=== PATIENT | male | born 1980 | race African-American/Black ===

== ENCOUNTER 2016-11-15 10:56 | Emergency (ER) | payer OTHER ==
[~2016-11-15] VITALS: Ht 182.9 cm; Wt 80.0 kg
[2016-11-15 11:01] VITALS: Ht 182.9 cm; Wt 80.0 kg
--- NOTE | 2016-11-15 12:43 | RADRPT ---
PROCEDURE: XR Knee. CLINICAL INDICATION: Bilateral knee pain TECHNIQUE: Three views of the right knee and 3 views of the left knee knee are available for syeda liao. COMPARISON: None available FINDINGS: Right knee: There is no evidence of acute fracture. There is partial visualization of an intramedu llary ozzy with distal cannulated screws at the femur. There is no evidence of hardware complication . There is a small joint effusion and mild prepatellar soft tissue swelling. Left knee: There is no evidence of acute fracture. There is partial visualization of an intramedul wesly ozzy with proximal cannulated screws at the tibia. There is no evidence of hardware complicatio n. There is no significant joint effusion. IMPRESSION: 1. No radiographic evidence of acute osseous abnormality noting with orthopedic hardware at the righ t femur and left tibia as above. 2. Mild prepatellar soft tissue swelling and small joint effusion on the right. RPTAT: UU .Iftikhar Veliz MD, MD Date Time Electronically viewed and signed by .Iftikhar Veliz MD, on 11/15/2016 12:43 .K/
[2016-11-15] MEDS ORDERED: HYDR-906 PO (12:52)
[2016-11-15] MEDS ORDERED: NAPR-688 PO (12:52)
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
== END 2016-11-15 13:06 | disposition home or self-care (01) ==
LOC: E/R 10:56
DX: S80.02XA Contusion of left knee, initial encounter (principal); S80.01XA Contusion of right knee, initial encounter; X58.XXXA Exposure to other specified factors, initial encounter; Y92.9 Unspecified place or not applicable